=== PATIENT | male | born 1950 | race Caucasian/White ===

== ENCOUNTER 2018-07-23 13:55 | Outpatient (CLI) | payer MEDICARE, OTHER ==
[~2018-07-23 13:55] MED LIST: ACETAMINOPHEN-1 EAC1 ORAL; PROSCAR5 MG ORAL
[2018-07-23 14:17] VITALS: BP 141/65
[2018-07-23] MEDS ORDERED: TAMSULOSIN HCL0.4 MG ORAL (14:20)
--- NOTE | 2018-07-23 16:17 | GI Initial Consult Note ---
History of Present Illness General Date patient seen: Jul 23, 2018 Time patient seen: 16:12 Reason for Consultation: Colonoscopy Present Illness HPI 68 year old male patient presents today for routine colonoscopy. The patient had a previous endoscopy colonoscopy approximately 4 years ago noted with 5 colonic polyps and gastritis positive for H. Pylori. He presents with no GI symptoms today; denies any abdominal pain, N/V/D or constipation. Denies any unintentional weight loss or changes in dietary habits. No signs of abuse or neglect. Patient is not fall risk. Indication for Procedure: screening colon, GERD Procedures Performed: EGD, colonoscopy Operative Findings/Diagnosis: 5 polyps, gastritis Home Meds Reported Medications Tamsulosin Hcl (TAMSULOSIN HCL*) 0.4 Mg Cap.er.24h, 0.4 MG ORAL BEDTIME, CAP 07/23/18 Finasteride* (PROSCAR*) 5 Mg Tablet, 5 MG ORAL DAILY, #30 TAB 0 Refills 06/03/15 Acetaminophen With Codeine (T#3) (TYLENOL #3 TAB*) 1 Each Tablet, 2 TAB ORAL Q6H PRN for For Pain, TAB 06/03/15 Med list reviewed/reconciled: Yes Allergies: Coded Allergies: SULFA (SULFONAMIDE ANTIBIOTICS) (Verified Allergy, Intermediate, Rash, ) swollen Patient History PMH Narrative PAST MEDICAL HISTORY: 1. BPH. 2. History of arthritis. 3. History of kidney stones. PAST SURGICAL HISTORY: 1. Left kidney stone surgery. 2. TURP. 3. Hernia surgery. Social History: Denies: smoking, alcohol use, drug use, other Review of Systems All Other Systems: negative except mentioned in HPI Physical Exam Vital Signs Date Time Temp Pulse Resp B/P (MAP) Pulse Ox O2 Delivery O2 Flow Rate FiO2 07/23/18 14:17 98.7 77 18 141/65 93 98.7 Sp02 EP Interpretation: reviewed, normal General Appearance: well appearing, no apparent distress, alert Head: normocephalic EENT: PERRL/EOMI, normal ENT inspection Neck: supple Respiratory: normal breath sounds, no respiratory distress Cardiovascular: normal rate Gastrointestinal: normal inspection, non tender, soft, normal bowel sounds, non -distended Rectal: deferred Genitourinary: deferred Musculoskeletal: normal inspection, back normal Neurologic: normal inspection, alert, oriented x3, responsive Psychiatric: normal inspection, judgement/insight normal, memory normal Skin: normal inspection, normal color, no rash, warm/dry, palpation normal, well hydrated Lymphatic: normal inspection, no adenopathy GI: Plan Problems: (1) colon poyps x5 (2) hp posiitve gasritis Plan Colonoscopy scheduled 08/01/18. - CLD & (Nulytely/Suprep/Movi-Prep) prep instructions given and acknowledged by patient. - NPO @ [place] day prior procedure explained. Seen with Dr. Lebron. Thank you for this patient referral. The patient was seen and examined at bedside and all new and available data was reviewed in the patients chart. I agree with the above findings, impression and plan. (Patient seen earlier today. Signature stamp does not reflect patient encounter time.). - MD [facility]CH[facility] Jul 23, 2018 16:17
== END 2018-07-23 14:25 | disposition home or self-care (01) ==
LOC: PAN 13:55
DX: Z12.11 Encounter for screening for malignant neoplasm of colon (principal); K63.5 Polyp of colon; K29.60 Other gastritis without bleeding; M19.90 Unspecified osteoarthritis, unspecified site; Z98.890 Other specified postprocedural states
CPT/HCPCS: 99212

== ENCOUNTER 2018-08-01 07:54 | Day surgery (SDC) | payer MEDICARE, OTHER ==
[2018-08-01] VITALS (9 sets, daily range): BP systolic 117–133; BP diastolic 68–74
[~2018-08-01] VITALS: Ht 177.8 cm; Wt 97.5 kg
[~2018-08-01 07:54] MED LIST changes: +TAMSULOSIN HCL0.4 MG ORAL
[2018-08-01] MEDS ORDERED: Lidocaine 1% MPF 10mg/ml 5ml ONE ×2 (08:30→09:30)
[2018-08-01] MEDS ORDERED: Propofol 200mg/20ml IV ONE ×2 (08:30→09:30)
--- NOTE | 2018-08-01 09:03 | Anethesia Preoperative Eval ---
Anesthesia Pre-op PMH/ROS General Date of Evaluation: Aug 01, 2018 Time of Evaluation: 08:54 Anesthesiologist: Yudi Remy CRNA ASA Score: ASA 2 Mallampati Score Class I : Soft palate, uvula, fauces, pillars visible Class II: Soft palate, uvula, fauces visible Class III: Soft palate, base of uvula visible Class IV: Only hard plate visible Mallampati Classification: Class II Surgeon: Bernardino Diagnosis: Colon polyps Surgical Procedure: Colonoscopy Anesthesia History: none Social History: smoking Family History: no anesthesia problems Allergies: Coded Allergies: CEPHALEXIN (Verified Allergy, Severe, 08/01/18) penile redness and swelling SULFA (SULFONAMIDE ANTIBIOTICS) (Verified Allergy, Intermediate, Rash, ) swollen Medications: see eMAR Patient NPO?: Yes NPO Date: Aug 01, 2018 NPO Time: 00:00 Past Medical History Cardiovascular: Denies: HTN, CAD, ME, valve dz, arrhythmia, other Pulmonary: Denies: asthma, COPD, ERIC, other Gastrointestinal/Genitourinary: Reports: GERD, other - BPH; Denies: CRI, ESRD Neurologic/Psychiatric: Denies: dementia, CVA, depression/anxiety, TIA, other Endocrine: Denies: DM, hypothyroidism, steroids, other HEENT: Denies: cataract (L), cataract (R), glaucoma, RAMPART (L), RAMPART (R), other Hematology/Immune: Denies: anemia, DVT, bleeding disorder, other Musculoskeletal/Integumentary: Reports: OA; Denies: RA, DJD, DDD, edema, other Other: obesity PMH Narrative: As above PSxH Narrative: TURP; inguinal hernia repair, cystoscopy, kidney stone extraction Anesthesia Pre-op Phys. Exam Physician Exam Last Vital Signs Date Time Temp Pulse Resp B/P (MAP) Pulse Ox O2 Delivery O2 Flow Rate FiO2 08/01/18 08:28 98.0 75 20 119/71 97 Room Air 98.0 Constitutional: NAD Neurologic: CN 2-12 intact Cardiovascular: RRR Gastrointestinal: S/NT/ND Airway Exam Mallampati Score: Class II MO: full Neck: no limitation, thick neck TMD: > 3 fb ROM: full Teeth: intact Dentures: no upper, no lower Anesthesia Pre-op A/P Studies Pre-op Studies: EKG - SR with SA Risk Assessment & Plan Assessment: asa 2, ok to proceed Plan: MAC Status Change Before Surgery: No Pre-Antibiotics Given Within 1 Hr of Incision: Yudi Aburto CRNA Aug 01, 2018 09:03
--- NOTE | 2018-08-01 09:15 | Pre-Procedure Note/Attestation ---
Pre-Procedure Note/Attestation Complete Prior to Procedure Planned Procedure: not applicable Procedure Narrative: colonoscopy Indications for Procedure Pre-Operative Diagnosis: h/o colon polyps Attestation I attest that I discussed the nature of the procedure; its benefits; risks and complications; and alternatives (and the risks and benefits of such alternatives ), prior to the procedure, with the patient (or the patient's legal international representative). I attest that, if there was a reasonable possibility of needing a blood transfusion, the patient (or the patient's legal international representative) was given the [facility] standardized written summary, pursuant to the [place] Blood Safety Act ([place] Health and Safety Code # 1645, as amended). I attest that I re-evaluated the patient just prior to the surgery and that there has been no change in the patient's H&P, except as documented below: Rodolfo Lebron MD Aug 01, 2018 09:15
--- NOTE | 2018-08-01 09:16 | Short Stay Surgery H&P ---
History of Present Illness History of Present Illness Chief Complaint see recent office note HPI Carlos Manuel Mora is a 68 year old male who was admitted on for Hx Of Colon Polyps Patient History Allergies: Coded Allergies: CEPHALEXIN (Verified Allergy, Severe, 08/01/18) penile redness and swelling SULFA (SULFONAMIDE ANTIBIOTICS) (Verified Allergy, Intermediate, Rash, ) swollen Medication History Scheduled Finasteride* (Proscar*), 5 MG ORAL DAILY, (Reported) Tamsulosin Hcl (Tamsulosin Hcl*), 0.4 MG ORAL BEDTIME, (Reported) Scheduled PRN Acetaminophen With Codeine (T#3) (Tylenol #3 Tab*), 2 TAB ORAL Q6H PRN for For Pain, (Reported) Physical Exam Vital Signs Last Vital Signs Date Time Temp Pulse Resp B/P (MAP) Pulse Ox O2 Delivery O2 Flow Rate FiO2 08/01/18 08:28 98.0 75 20 119/71 97 Room Air 98.0 Plan Attestation Are the patient's medical conditions optimized for surgery? Rodolfo Lebron MD Aug 01, 2018 09:16
--- NOTE | 2018-08-01 09:48 | Endoscopy Procedure Note ---
Endoscopy Procedure Note General Indication for Procedure: screening colon Procedures Performed: colonoscopy Operative Findings/Diagnosis: diverticulosis Specimen: yes Pt Tolerated Procedure Well: Yes Estimated Blood Loss: none Anesthesia Anesthesiologist: renée Anesthesia: MAC Inserted Devices Implant(s) used?: No Quality Quality of Bowel Preparation: Good Did scope reach the cecum?: Yes Was there any complications?: No GI Core Measures 50 yrs or older w/o bx or poly: No 10yrs. F/U not recommended: Yes If not recommended, why?: Above average risk 10 yrs. F/U needed: Yes 18 years or older w/prev. colo: Yes <3yrs. since last colonoscopy: No Rodolfo Lebron MD Aug 01, 2018 09:48
--- NOTE | 2018-08-01 09:59 | Immediate Post-Op Evaluation ---
Immediate Post-Op Evalulation Immediate Post-Op Evalulation Procedure: diagnostic colonoscopy Date of Evaluation: Aug 01, 2018 Time of Evaluation: 09:52 IV Fluids: 0.9 NS 300 ml Blood Pressure Systolic: 117 Blood Pressure Diastolic: 68 Pulse Rate: 60 Respiratory Rate: 20 O2 Sat by Pulse Oximetry: 98 Temperature (Fahrenheit): 97.6 Pain Score (1-10): 0 Nausea: No Vomiting: No Complications none Patient Status: awake, reacts, patent Hydration Status: adequate Given Within 1 Hr of Incision: Yudi Aburto CRNA Aug 01, 2018 09:59
--- NOTE | 2018-08-01 11:14 | 48 Hour Post Anesthesia Eval ---
Post Anesthesia Evaluation Procedure: diagnostic colonoscopy Date of Evaluation: Aug 01, 2018 Time of Evaluation: 10:30 Blood Pressure Systolic: 122 0: 72 Pulse Rate: 57 Respiratory Rate: 20 Temperature (Fahrenheit): 97.3 O2 Sat by Pulse Oximetry: 97 Airway: patent Nausea: No Vomiting: No Pain Intensity: 0 Hydration Status: adequate Cardiopulmonary Status: stable Mental Status/LOC: patient returned to baseline Follow-up Care/Observations: per GI Post-Anesthesia Complications: none Follow-up care needed: ready to discharge Yudi Remy CRNA Aug 01, 2018 11:14
--- NOTE | 2018-08-01 12:15 | Procedure Note ---
DATE OF PROCEDURE: 08/01/2018 SURGEON: Rodolfo Lebron M.D. ANESTHESIOLOGIST: Yudi MCDERMOTT. PROCEDURE: Colonoscopy. ANESTHESIA: Per Yudi MCDERMOTT. INSTRUMENT: Olympus adult flexible colonoscope. INDICATION: History of colonic polyps. The procedure, risks, benefits, and possible consequences, including hemorrhage, aspiration, perforation and infection, and alternative treatments, were explained to the patient/legal guardian by Dr. Rodolfo Lebron and the patient/legal guardian understood and accepted these risks. DESCRIPTION OF PROCEDURE: After informed consent was obtained and the patient was adequately sedated, first rectal exam was performed which was positive for internal hemorrhoids. Then, the scope was advanced from rectum into the cecum documented by appendix orifice, ileocecal valve, and right upper quadrant palpation. Quality of prep was very good. The patient has evidence of moderate diverticulosis in the left colon. No obvious polyp seen in this colonoscopy examination. Retroflexion of rectum showed evidence of small nonbleeding internal hemorrhoids. SUMMARY OF FINDINGS: 1. Diverticulosis. 2. Internal hemorrhoids. RECOMMENDATIONS: Repeat colonoscopy in 5 years. Rodolfo Lebron M.D. DR: Brandy JOB#: [id number] CC:
--- NOTE | 2018-08-03 16:17 | Cardiology Report ---
APPROVED REPORT EKG Measurement Heart [id number] Normal sinus rhythm with sinus arrhythmia Normal ECG
== END 2018-08-01 13:40 | disposition home or self-care (01) ==
LOC: GAS 07:54
DX: Z86.010 Personal history of colon polyps (principal); K57.30 Diverticulosis of large intestine without perforation or abscess without bleeding; K64.8 Other hemorrhoids; K21.9 Gastro-esophageal reflux disease without esophagitis; N40.0 Benign prostatic hyperplasia without lower urinary tract symptoms; F17.200 Nicotine dependence, unspecified, uncomplicated; M19.90 Unspecified osteoarthritis, unspecified site; E66.9 Obesity, unspecified; Z88.1 Allergy status to other antibiotic agents; Z88.2 Allergy status to sulfonamides
CPT/HCPCS: 45378; 93005; J2704; 94003; 94150

== ENCOUNTER 2018-08-23 09:53 | Outpatient (CLI) | payer MEDICARE, OTHER ==
--- NOTE | 2018-08-23 23:20 | GI Progress Note ---
Assessment/Plan Problems: (1) hp posiitve gasritis (2) colon poyps x5 Status: stable Status Narrative Seen with Dr. Lebron. Assessment/Plan SUMMARY OF FINDINGS reviewed with patient: 1. Diverticulosis. 2. Internal hemorrhoids. RECOMMENDATIONS: Rx Anusol HC, Xifaxan RTC x 1 month Repeat colonoscopy in 5 years. The patient was seen and examined at bedside and all new and available data was reviewed in the patients chart. I agree with the above findings, impression and plan. (Patient seen earlier today. Signature stamp does not reflect patient encounter time.). - Rodolfo Lebron MD Subjective Gastrointestinal/Abdominal: Reports: no symptoms Objective General Appearance: WD/WN, no apparent distress, alert Cardiovascular: normal rate Respiratory/Chest: normal breath sounds, no respiratory distress Abdominal Exam: normal bowel sounds, non tender, soft Extremities: normal range of motion, non-tender John Quezada NP Aug 23, 2018 23:20
== END 2018-08-23 10:23 | disposition home or self-care (01) ==
LOC: PAN 09:53
DX: K29.60 Other gastritis without bleeding (principal); B96.81 Helicobacter pylori [H. pylori] as the cause of diseases classified elsewhere; K63.5 Polyp of colon; K57.90 Diverticulosis of intestine, part unspecified, without perforation or abscess without bleeding; K64.8 Other hemorrhoids
CPT/HCPCS: 99212